=== PATIENT | female | born 1980 | race Caucasian/White ===

== ENCOUNTER 2019-04-14 16:56 | Emergency (ER) | payer OTHER ==
[~2019-04-14] VITALS: Ht 167.6 cm; Wt 86.2 kg
[2019-04-14] MEDS ORDERED: VENLAFAXINE HCL25 MG PO (17:10)
[2019-04-14 17:45] LABS: ABSOLUTE BASOPHILS 0.1 thou/uL (0.0-0.2); ABSOLUTE EOSINOPHILS 0.4 thou/uL (0.0-0.7); ABSOLUTE LYMPHOCYTES 2.2 thou/uL (0.8-5.3); ABSOLUTE MONOCYTES 0.6 thou/uL (0.0-1.2); ABSOLUTE NEUTROPHILS 7.8 thou/uL (1.6-8.1); BASOPHILS 0.6 %; EOSINOPHILS 3.3 %; HEMOGLOBIN 14.5 gm/dL (12.0-15.0); MCH 30.2 pg (26.0-34.0); MCHC 34.5 g/dL (28.0-37.0); MCV 87.6 fL (80.0-100.0); MONOCYTES 5.7 %; MPV 8.9 fl. (7.2-11.1); NUCLEATED RBCS 0 /100WBC; PLATELET COUNT* 260 thou/uL (150-400); POLYS 70.4 %; RDW-CV 14.1 % (10.5-14.5)
[2019-04-14 17:52] LABS: URINE BILIRUBIN NEGATIVE (Negative); URINE BLOOD TRACE (Negative); URINE CLARITY CLEAR; URINE COLOR YELLOW; URINE GLUCOSE-RANDOM NEGATIVE (Negative); URINE KETONES NEGATIVE (Negative); URINE LEUKOCYTES-REFLEX NEGATIVE (Negative); URINE NITRITE-REFLEX NEGATIVE (Negative); URINE PROTEIN NEGATIVE (Negative); URINE SPECIFIC GRAVITY 1.015 (1.005-1.030); URINE UROBILINOGEN 0.2 E.U./dl (0.2-1.0)
[2019-04-14 17:57] LABS: CALCIUM 8.7 mg/dL (8.5-10.1); CREATININE 0.8 mg/dL (0.6-1.3); POTASSIUM 3.9 mmol/L (3.5-5.1)
[2019-04-14 18:02] LABS: ALBUMIN 3.8 g/dL (3.4-5.0); TOTAL BILIRUBIN 0.3 mg/dL (<0.1-1.0); TOTAL PROTEIN 7.3 g/dL (6.4-8.2)
[2019-04-14 19:07] VITALS: BP 98/62
== END 2019-04-14 19:12 | disposition home or self-care (01) ==
LOC: M.ERS 16:56
PROVIDERS: Physician Assistant
DX: N20.1 Calculus of ureter (principal); R10.32 Left lower quadrant pain; Z98.890 Other specified postprocedural states; Z90.49 Acquired absence of other specified parts of digestive tract; Z90.711 Acquired absence of uterus with remaining cervical stump

== ENCOUNTER 2020-04-08 12:43 | Emergency (ER) | payer OTHER ==
[~2020-04-08] VITALS: Ht 167.6 cm; Wt 99.8 kg
[~2020-04-08 12:43] MED LIST: VENLAFAXINE HCL25 MG PO
[2020-04-08 13:26] LABS: ABSOLUTE BASOPHILS 0.1 thou/uL (0.0-0.2); ABSOLUTE EOSINOPHILS 0.3 thou/uL (0.0-0.7); ABSOLUTE LYMPHOCYTES 2.4 thou/uL (0.8-5.3); ABSOLUTE MONOCYTES 0.7 thou/uL (0.0-1.2); ABSOLUTE NEUTROPHILS 6.8 thou/uL (1.6-8.1); BASOPHILS 0.7 %; EOSINOPHILS 2.5 %; HEMATOCRIT 45.4 % (37.0-47.0); HEMOGLOBIN 15.2 gm/dL (12.0-15.0); LYMPHOCYTES 23.6 %; MCH 29.7 pg (26.0-34.0); MCHC 33.6 g/dL (28.0-37.0); MCV 88.4 fL (80.0-100.0); MONOCYTES 7.1 %; MPV 8.2 fl. (7.2-11.1); NUCLEATED RBCS 0 /100WBC; PLATELET COUNT* 275 thou/uL (150-400); POLYS 66.1 %; RBC 5.13 mil/uL (4.20-5.00); RDW-CV 14.2 % (10.5-14.5); WBC 10.3 thou/uL (4.0-11.0)
[2020-04-08 13:35] LABS: CALCIUM 9.1 mg/dL (8.5-10.1); CREATININE 0.8 mg/dL (0.6-1.3)
[2020-04-08 13:45] LABS: TOTAL BILIRUBIN 0.6 mg/dL (<0.1-1.0); TOTAL PROTEIN 7.8 g/dL (6.4-8.2)
[2020-04-08] MEDS ORDERED: ATIVAN1 M1 PO (16:17)
[2020-04-08] MEDS ORDERED: NORCO 5-325 TA1 EAC2 PO (16:17)
[2020-04-08 16:26] VITALS: BP 108/78
--- NOTE | 2020-04-09 12:17 | EKG ---
[place] [address] ELECTROCARDIOGRAM REPORT Name: GAEL THOMAS Room: [facility]#: [id number] Admission: 04/08/20 Attend Phys: Discharge: 04/08/20 Date of : 76 Date of Service: 04/08/20 1247 Report #: [id number] THIS REPORT FOR: //name// [facility] ED Test Date: 2020-04-08 Test Time: 12:47:01 Pat Name: GAEL THOMAS Department: Room: Gender: Conveyor [employer]: : 1980 Requested By: Reece Coles Order Number: [id number] MD: Thee Stevens Measurements Intervals [place] Rate: 99 P: 13 VA: 117 QRS: -6 QRSD: 88 T: 11 QT: 334 QTc: 429 Interpretive Statements Sinus rhythm Borderline T wave abnormalities No previous ECG available for comparison Electronically Signed On 04-09-2020 12:17:28 THERAPIST ASST by Thee Stevens [email or web address] <ELECTRONICALLY SIGNED> By: Thee Stevens MD, [facility] 04/09/20 1217 1247 1247 Thee Stevens MD, FACC /EPI
--- NOTE | 2020-04-09 12:21 | EKG ---
[place] [address] ELECTROCARDIOGRAM REPORT Name: GAEL THOMAS Room: [facility]#: [id number] Admission: 04/08/20 Attend Phys: Discharge: 04/08/20 Date of : 76 Date of Service: 04/08/201612 Report #: [id number] THIS REPORT FOR: //name// [facility] ED Test Date: 2020-04-08 Test Time: 16:13:12 Pat Name: GAEL THOMAS Department: Room: Gender: Inspector Circuit[employer] Negative: 15 : 1980 Requested By: Reece Coles Order Number: [id number] MD: Thee Stevens Measurements Intervals [place] Rate: 80 P: 13 MT: 125 QRS: 0 QRSD: 99 T: 13 QT: 389 QTc: 449 Interpretive Statements Sinus rhythm Electronically Signed On 04-09-2020 12:21:21 CHIMNEY BUILDER by Thee Stevens [email or web address] <ELECTRONICALLY SIGNED> By: Thee Stevens MD, [facility] 04/09/20 1221 12 1613 Thee Stevens MD, FACC /EPI
== END 2020-04-08 16:26 | disposition home or self-care (01) ==
LOC: M.ERS 12:43
PROVIDERS: Emergency Medicine Emergency Medical Services
DX: R07.89 Other chest pain (principal); Z20.828 Contact with and (suspected) exposure to other viral communicable diseases; F17.210 Nicotine dependence, cigarettes, uncomplicated; Z90.49 Acquired absence of other specified parts of digestive tract; Z90.711 Acquired absence of uterus with remaining cervical stump; Z98.890 Other specified postprocedural states